=== PATIENT | female | born 1945 | race Asian ===

== ENCOUNTER 2017-06-08 08:16 | Outpatient (CLI) | payer OTHER, BC ==
[~2017-06-08 08:16] MED LIST: ACID REDUCER150 MG OR; ALBU90AE13 INH; AMLO2.5T PO; BUSPIRONE10 MG PO; CARAFATE1 GM PO; CETI10TA PO; CETIRIZINE10 MG PO; CLARITHROMYC500 M1 PO; CLONIDINE0.1 MG PO; CLONIDINE0.2 MG PO; CLOP75TA2 PO; CYCL10TA35 PO; DEMADEX20 MG PO; DIPH50CA30 PO; DOCU100C10 PO; ESTR1TAB13 PO; FETZIMA40 MG PO; FLUD0.1T PO; FLUT0.05 NAS; LABETALOL300 MG OR; LAXA BASIC PO; LAXATIVE1 TAB PO; LEVE500T5 PO; LEVO0.0218 PO; LIDOPATCH TOP; LISI20TA31 OR; LORADAMED10 MG OR; LORAZEPAM0.5 MG OR; MELATONIN300 MCG PO; METO50TA27 PO; NEURONTIN 100M100 MG PO; NEXIUM40 M1 PO; OMEP40CA PO; ONDA4TAB3 PO; RANI150T78 PO; RANO1000T PO; TORSEMIDE20 MG PO; TRAM50TA PO; UNITH DIRECT50 MCG PO; VITAMIN D35000 UNI3 PO; VIVELLE-DOT0.0375 MG TD; [UNRECOGNIZED DRUG - CODE] PO
== END 2017-06-08 09:20 | disposition home or self-care (01) ==
LOC: RAD 08:16
DX: M54.17 Radiculopathy, lumbosacral region (principal)

== ENCOUNTER 2017-06-30 08:54 | Outpatient (CLI) | payer OTHER, BC | END 2017-06-30 10:30 | disposition home or self-care (01) | LOC: MRI 08:54 | DX: M54.17 Radiculopathy, lumbosacral region (principal); M81.0 Age-related osteoporosis without current pathological fracture ==

== ENCOUNTER 2017-08-21 12:50 | Emergency (ER) | payer OTHER, BC ==
[~2017-08-21] VITALS: Ht 172.7 cm; Wt 73.9 kg
[2017-08-21 13:04] VITALS: BP 184/94; TEMP 98
== END 2017-08-21 14:30 | disposition home or self-care (01) ==
LOC: EDBD 12:50 → ED 12:50
DX: M54.5 Low back pain (principal)

== ENCOUNTER 2017-09-18 12:45 | Outpatient (CLI) | payer OTHER, BC | END 2017-09-18 19:32 | disposition home or self-care (01) | LOC: EDBD 12:45 → RAD 12:45 | DX: M79.605 Pain in left leg (principal) ==

== ENCOUNTER 2017-09-25 19:07 | Emergency (ER) | payer OTHER, BC ==
[~2017-09-25] VITALS: Ht 175.3 cm; Wt 69.4 kg
[2017-09-25 19:10] VITALS: TEMP 97.8
[2017-09-25 19:42] LABS: PLATELET COUNT 249 K/uL (152-353)
[2017-09-25] MEDS ORDERED: HYDR5TAB9 PO (19:47)
[2017-09-25] MEDS ORDERED: BACLOFEN10 MG OR (19:47)
[2017-09-25] MEDS ORDERED: DIOVAN40 MG PO (19:48)
[2017-09-25 19:56] LABS: POTASSIUM 3.7 mmol/L (3.6-5.2)
[2017-09-25 21:24] VITALS: BP 98/57
== END 2017-09-25 21:24 | disposition home or self-care (01) ==
LOC: EDBD 19:07 → ED 19:07
DX: J06.9 Acute upper respiratory infection, unspecified (principal)
CPT/HCPCS: 36415; 51702; 80053; 80307; 80320; 81000; 85027; 99283; G0479

== ENCOUNTER 2017-10-04 10:30 | Outpatient (CLI) | payer OTHER, BC ==
[~2017-10-04 10:30] MED LIST changes: +BACLOFEN10 MG OR; +DIOVAN40 MG PO; +HYDR5TAB9 PO
== END 2017-10-04 18:58 | disposition home or self-care (01) ==
LOC: EDBD 10:30 → RAD 10:30
DX: M25.551 Pain in right hip (principal); W01.0XXA Fall on same level from slipping, tripping and stumbling without subsequent striking against object, initial encounter

== ENCOUNTER 2017-10-06 12:11 | Observation (INO) | payer OTHER, BC ==
[~2017-10-06] VITALS: Ht 175.3 cm; Wt 71.0 kg
--- NOTE | 2017-10-06 12:30 | NUR ---
Pt. ADMITTED TO ROOM 1109 FOR SERVICES . C/O DIZZINESS X1 WEEK WITH HYPOTENSION.
[2017-10-06 14:39] LABS: PLATELET COUNT 283 K/uL (152-353)
[2017-10-06 14:40] LABS: POTASSIUM 3.8 mmol/L (3.6-5.2)
[2017-10-06 17:35] VITALS: BP 96/58; TEMP 97.8; Ht 175.3 cm; Wt 71.0 kg
[2017-10-06 20:00] VITALS: BP 159/70; TEMP 98.5
[2017-10-06] MEDS ORDERED: CLONIDINE0.3 MG PO (22:50)
[2017-10-06] MEDS ORDERED: NEURONTIN 100M100 MG OR (22:55)
[2017-10-06] MEDS ORDERED: DIOVAN40 MG PO (22:58)
[2017-10-07] VITALS: BP 113/56; TEMP 99.6
[2017-10-07 04:00] VITALS: BP 153/77; TEMP 99
[2017-10-07 08:00] VITALS: BP 146/97; TEMP 99.3
[2017-10-07 12:00] VITALS: BP 177/93; TEMP 98.7
[2017-10-07 16:00] VITALS: BP 168/63; TEMP 99
[2017-10-07 20:00] VITALS: BP 155/79; TEMP 99.6
[2017-10-08] VITALS: BP 165/67; TEMP 99.1
[2017-10-08 04:00] VITALS: BP 186/85; TEMP 99.4
[2017-10-08 05:15] LABS: PLATELET COUNT 267 K/uL (152-353)
[2017-10-08 05:44] LABS: POTASSIUM 3.2 mmol/L (3.6-5.2)
[2017-10-08 08:00] VITALS: BP 184/94; TEMP 99.8
[2017-10-08 12:00] VITALS: BP 169/79; TEMP 99
--- NOTE | 2017-10-08 18:00 | NUR ---
IV D/C'd. DISCHARGE INSTRUCTION SIGNED AND GIVEN. Pt. EXIT OUT OF FRONT ENTRANCE VIA W/C.
== END 2017-10-08 18:06 | disposition home or self-care (01) ==
LOC: MED/SURG 12:11 → EDBD 10-08 18:06 → MED/SURG 10-08 18:06
PROVIDERS: ADMIT Family Medicine
DX: R42 Dizziness and giddiness (principal); I65.9 Occlusion and stenosis of unspecified precerebral artery; M62.81 Muscle weakness (generalized)
CPT/HCPCS: 36415; 80053; 81000; 82550; 82553; 83735; 83880; 84100; 84484; 85027; 85651; 87040; 93005; 96360; 96361; 96365; 96366; 96375; 99220; G0378; G0379

== ENCOUNTER 2017-10-23 14:59 | Outpatient (CLI) | payer OTHER, BC ==
[~2017-10-23 14:59] MED LIST changes: +CLONIDINE0.3 MG PO; +NEURONTIN 100M100 MG OR
== END 2017-10-23 15:02 | disposition short-term general hospital (02) ==
LOC: AMB 14:59
DX: R41.82 Altered mental status, unspecified (principal); R53.83 Other fatigue
CPT/HCPCS: A0425; A0427

== ENCOUNTER 2017-10-23 15:07 | Emergency (ER) | payer OTHER, BC ==
[~2017-10-23] VITALS: Ht 175.3 cm; Wt 73.9 kg
[2017-10-23 16:29] LABS: PLATELET COUNT 208 K/uL (152-353)
[2017-10-23 16:43] LABS: POTASSIUM 3.6 mmol/L (3.6-5.2); SODIUM 138 mmol/L (136-145)
[2017-10-23 16:57] LABS: PARTIAL THROMBOPLASTIN TIME 32.6 SECONDS (24.5-33.6)
[2017-10-24 01:06] VITALS: BP 132/71; TEMP 98.6
== END 2017-10-24 01:06 | disposition short-term general hospital (02) ==
LOC: ED 15:07 → EDBD 15:07 → ED 10-24 01:06
PROVIDERS: Family Medicine
DX: J70.5 Respiratory conditions due to smoke inhalation (principal); T59.811A Toxic effect of smoke, accidental (unintentional), initial encounter; R41.82 Altered mental status, unspecified; R53.1 Weakness; R00.1 Bradycardia, unspecified; I10 Essential (primary) hypertension; E78.4 Other hyperlipidemia; R55 Syncope and collapse; Y92.098 Other place in other non-institutional residence as the place of occurrence of the external cause
CPT/HCPCS: 36415; 36600; 80053; 82550; 82553; 82805; 83605; 84484; 85027; 85610; 85730; 93005; 94664; 96374; 96375; 99284; J2310; J3490

== ENCOUNTER 2017-11-22 11:27 | Outpatient (CLI) | payer OTHER, BC ==
[2017-11-22 11:44] LABS: PLATELET COUNT 288 K/uL (152-353)
[2017-11-22 12:11] LABS: POTASSIUM 3.1 mmol/L (3.6-5.2)
== END 2017-11-22 19:04 | disposition home or self-care (01) ==
LOC: LABW 11:27
PROVIDERS: Internal Medicine Cardiovascular Disease
DX: I25.89 Other forms of chronic ischemic heart disease (principal); D64.89 Other specified anemias
CPT/HCPCS: 36415; 80053; 85027

== ENCOUNTER 2017-12-24 10:24 | Emergency (ER) | payer OTHER, BC ==
[~2017-12-24] VITALS: Ht 175.3 cm; Wt 72.6 kg
[2017-12-24 10:51] VITALS: TEMP 98
[2017-12-24] MEDS ORDERED: DONE5TAB PO (10:55)
[2017-12-24] MEDS ORDERED: TRAM50TA PO (10:55)
[2017-12-24 12:18] VITALS: BP 128/87
== END 2017-12-24 12:18 | disposition home or self-care (01) ==
LOC: ED 10:24
DX: M79.652 Pain in left thigh (principal); S76.812A Strain of other specified muscles, fascia and tendons at thigh level, left thigh, initial encounter; X50.9XXA Other and unspecified overexertion or strenuous movements or postures, initial encounter; Y92.098 Other place in other non-institutional residence as the place of occurrence of the external cause
CPT/HCPCS: 96372; 99283; J1885

== ENCOUNTER 2017-12-26 08:50 | Outpatient (CLI) | payer OTHER, BC ==
[~2017-12-26 08:50] MED LIST changes: +DONE5TAB PO
== END 2017-12-26 22:59 | disposition home or self-care (01) ==
LOC: MRI 08:50
DX: M48.02 Spinal stenosis, cervical region (principal); M47.896 Other spondylosis, lumbar region

== ENCOUNTER 2018-04-12 08:22 | Outpatient (CLI) | payer OTHER, BC ==
[~2018-04-12 08:22] MED LIST changes: -NEURONTIN 100M100 MG OR
== END 2018-04-12 08:26 | disposition short-term general hospital (02) ==
LOC: AMB 08:22
DX: M54.2 Cervicalgia (principal); W05.0XXA Fall from non-moving wheelchair, initial encounter; Y92.098 Other place in other non-institutional residence as the place of occurrence of the external cause
CPT/HCPCS: A0425; A0427

== ENCOUNTER 2018-04-12 08:29 | Emergency (ER) | payer OTHER, BC ==
[~2018-04-12] VITALS: Ht 172.7 cm; Wt 73.0 kg
[~2018-04-12 08:29] MED LIST changes: +NEURONTIN 100M100 MG OR
[2018-04-12 09:57] LABS: POTASSIUM 5.1 mmol/L (3.6-5.2)
[2018-04-12 10:11] LABS: PLATELET COUNT 331 K/uL (152-353)
[2018-04-12 11:20] VITALS: BP 146/83; TEMP 97.7
== END 2018-04-12 11:20 | disposition home or self-care (01) ==
LOC: ED 08:29
PROVIDERS: Family Medicine
DX: E86.0 Dehydration (principal); W07.XXXA Fall from chair, initial encounter; Y92.89 Other specified places as the place of occurrence of the external cause
CPT/HCPCS: 80053; 82550; 82553; 85027; 96372; 99283; J1885

== ENCOUNTER 2018-04-14 10:45 | Inpatient (IN) | payer OTHER, BC ==
[~2018-04-14] VITALS: Ht 172.7 cm; Wt 71.7 kg
[~2018-04-14 10:45] MED LIST changes: -NEURONTIN 100M100 MG OR
[2018-04-14 12:45] LABS: POTASSIUM 3.3 mmol/L (3.6-5.2)
[2018-04-14 12:46] LABS: PLATELET COUNT 329 K/uL (152-353)
[2018-04-14] MEDS ORDERED: CETIRIZINE10 MG PO (14:41)
[2018-04-14] MEDS ORDERED: DIAZ5TAB20 PO (14:42)
[2018-04-14] MEDS ORDERED: MULTI COMPLETE PO (14:42)
[2018-04-14] MEDS ORDERED: OXYC5TAB53 PO (14:43)
[2018-04-14] MEDS ORDERED: METOPROLOL25 M1 PO (14:44)
[2018-04-14] MEDS ORDERED: CVS OMEPRAZOLE20 MG PO (14:45)
[2018-04-14] MEDS ORDERED: DIPHENHYDRAM50 M2 PO (14:45)
[2018-04-14 16:00] VITALS: BP 120/61; TEMP 97.6
[2018-04-14 17:39] VITALS: BP 137/86; TEMP 97.8; Ht 172.7 cm; Wt 71.7 kg
[2018-04-14 20:00] VITALS: BP 143/82; TEMP 99.7
[2018-04-14 23:52] VITALS: BP 142/89; TEMP 100
[2018-04-15 03:53] VITALS: BP 134/89; TEMP 99.5
[2018-04-15 08:17] VITALS: BP 177/98; TEMP 98.6
[2018-04-15 11:43] VITALS: BP 145/86; TEMP 99
[2018-04-15 16:00] VITALS: BP 137/86; TEMP 98.7
[2018-04-15 19:56] VITALS: BP 143/90; TEMP 99.4
[2018-04-16] VITALS: BP 148/78; TEMP 99.5
[2018-04-16 03:56] VITALS: BP 155/89; TEMP 99.5
[2018-04-16 05:43] LABS: PLATELET COUNT 287 K/uL (152-353)
[2018-04-16 06:04] LABS: POTASSIUM 3.4 mmol/L (3.6-5.2)
[2018-04-16 08:00] VITALS: BP 177/98; TEMP 98.9
[2018-04-16 12:00] VITALS: BP 146/91; TEMP 98.8
[2018-04-16 16:00] VITALS: BP 146/77; TEMP 98.9
[2018-04-16 19:17] VITALS: BP 140/87; TEMP 99.1
[2018-04-17 00:25] VITALS: BP 128/75; TEMP 98.3
[2018-04-17 04:22] VITALS: BP 168/98; TEMP 98.6
[2018-04-17 05:47] LABS: PLATELET COUNT 264 K/uL (152-353)
[2018-04-17 06:13] LABS: POTASSIUM 3.3 mmol/L (3.6-5.2)
[2018-04-17 08:00] VITALS: BP 163/81; TEMP 99.2
[2018-04-17 12:00] VITALS: BP 151/70; TEMP 99.4
[2018-04-17 16:00] VITALS: BP 169/79; TEMP 98.5
[2018-04-17 20:00] VITALS: BP 140/74; TEMP 99.3
[2018-04-18] VITALS: BP 138/76; TEMP 100.5
[2018-04-18 04:00] VITALS: BP 172/85; TEMP 99.5
[2018-04-18 05:40] LABS: PLATELET COUNT 228 K/uL (152-353)
[2018-04-18 05:58] LABS: POTASSIUM 3.3 mmol/L (3.6-5.2)
[2018-04-18 08:00] VITALS: BP 151/82; TEMP 99.5
[2018-04-18 12:00] VITALS: BP 159/81; TEMP 99.5
== END 2018-04-18 16:19 | disposition swing bed (61) | DRG 641 ==
LOC: MED/SURG 10:45
PROVIDERS: ADMIT Family Medicine
DX: E86.0 Dehydration (principal); G89.18 Other acute postprocedural pain; R42 Dizziness and giddiness; M54.2 Cervicalgia; M62.81 Muscle weakness (generalized); G20 Parkinson's disease; R53.81 Other malaise; M62.838 Other muscle spasm
CPT/HCPCS: 36415; 36591; 80053; 81000; 82550; 82553; 83735; 83874; 83880; 84100; 84443; 84484; 85027; 85610; 87040; 87077; 87185; 87205; 93005; 96360; 96361; 96366; 96374; 96375; J2270; J3475

== ENCOUNTER 2018-04-18 16:20 | Inpatient (IN) | payer OTHER, BC ==
[~2018-04-18] VITALS: Ht 172.7 cm; Wt 70.3 kg
[~2018-04-18 16:20] MED LIST changes: +CVS OMEPRAZOLE20 MG PO; +DIAZ5TAB20 PO; +DIPHENHYDRAM50 M2 PO; +METOPROLOL25 M1 PO; +MULTI COMPLETE PO; +OXYC5TAB53 PO
[2018-04-18 17:36] VITALS: BP 147/95; TEMP 99.3; Ht 172.7 cm; Wt 70.3 kg
[2018-04-18 20:00] VITALS: BP 179/92; TEMP 99.6
[2018-04-19 08:30] VITALS: BP 110/69; TEMP 98.3
[2018-04-19 20:00] VITALS: BP 102/60; TEMP 98.9
[2018-04-20 08:47] VITALS: BP 124/72; TEMP 98.6
[2018-04-20 20:00] VITALS: BP 141/72; TEMP 99.4
[2018-04-21 09:22] VITALS: BP 117/69; TEMP 98.6
[2018-04-21 20:00] VITALS: BP 108/60; TEMP 99.9
[2018-04-22 19:56] VITALS: BP 118/72; TEMP 99.3
[2018-04-23 20:00] VITALS: BP 108/53; TEMP 100
[2018-04-24 08:15] VITALS: BP 127/51; TEMP 99
[2018-04-24 20:00] VITALS: BP 125/76; TEMP 98.9
[2018-04-25 06:10] LABS: POTASSIUM 3.9 mmol/L (3.6-5.2)
[2018-04-25 06:11] LABS: PLATELET COUNT 276 K/uL (152-353)
[2018-04-25 09:22] VITALS: BP 89/50; TEMP 97.8
[2018-04-25 20:19] VITALS: BP 120/71; TEMP 98.6
[2018-04-26 09:10] VITALS: BP 114/68; TEMP 98.3
== END 2018-04-26 09:30 | disposition home or self-care (01) | DRG 556 ==
LOC: MED/SURG 16:20
PROVIDERS: ADMIT Family Medicine
DX: M62.81 Muscle weakness (generalized) (principal); I10 Essential (primary) hypertension; M54.2 Cervicalgia; Z98.1 Arthrodesis status; H81.49 Vertigo of central origin, unspecified ear; R26.81 Unsteadiness on feet; K21.0 Gastro-esophageal reflux disease with esophagitis; Z73.6 Limitation of activities due to disability; Z91.81 History of falling; R26.89 Other abnormalities of gait and mobility; E86.0 Dehydration
CPT/HCPCS: 80053; 83735; 84100; 85027

== ENCOUNTER 2018-12-05 09:03 | Outpatient (CLI) | payer OTHER, BC | END 2018-12-05 22:07 | disposition home or self-care (01) | LOC: MAMMO 09:03 | DX: Z12.31 Encounter for screening mammogram for malignant neoplasm of breast (principal) ==

== ENCOUNTER 2018-12-18 15:34 | Outpatient (CLI) | payer OTHER, BC | END 2018-12-18 21:18 | disposition home or self-care (01) | LOC: RAD 15:34 | DX: M54.12 Radiculopathy, cervical region (principal) ==

== ENCOUNTER 2019-08-05 08:04 | Outpatient (CLI) | payer OTHER, BC | END 2019-08-05 22:36 | disposition home or self-care (01) | LOC: RAD 08:04 | DX: M25.552 Pain in left hip (principal) ==

== ENCOUNTER 2019-09-26 22:49 | Emergency (ER) | payer OTHER, BC ==
[~2019-09-26] VITALS: Ht 175.3 cm; Wt 70.3 kg
[2019-09-27 00:22] VITALS: BP 129/71; TEMP 97.5
== END 2019-09-27 00:22 | disposition home or self-care (01) ==
LOC: ED 22:49
DX: T78.49XA Other allergy, initial encounter (principal)
CPT/HCPCS: 99282

== ENCOUNTER 2019-11-15 09:32 | Outpatient (CLI) | payer OTHER, BC | END 2019-11-15 19:40 | disposition home or self-care (01) | LOC: RAD 09:32 | DX: M89.8X8 Other specified disorders of bone, other site (principal); N95.8 Other specified menopausal and perimenopausal disorders ==

== ENCOUNTER 2019-12-10 09:16 | Outpatient (CLI) | payer OTHER, BC | END 2019-12-10 19:42 | disposition home or self-care (01) | LOC: MAMMO 09:16 | DX: Z12.31 Encounter for screening mammogram for malignant neoplasm of breast (principal) ==

== ENCOUNTER 2020-01-29 09:15 | Outpatient (CLI) | payer OTHER, BC | END 2020-01-29 19:29 | disposition home or self-care (01) | LOC: RAD 09:15 | DX: R10.13 Epigastric pain (principal) | CPT/HCPCS: 36415; 82565; 84520; Q9963 ==

== ENCOUNTER 2020-04-30 11:12 | Outpatient (CLI) | payer OTHER, BC | END 2020-04-30 22:24 | disposition home or self-care (01) | LOC: RAD 11:12 | DX: M06.4 Inflammatory polyarthropathy (principal); M79.641 Pain in right hand; M79.642 Pain in left hand ==

== ENCOUNTER 2020-07-17 14:22 | Emergency (ER) | payer OTHER, BC ==
[~2020-07-17] VITALS: Ht 175.3 cm; Wt 71.7 kg
[2020-07-17 14:35] VITALS: BP 122/64; TEMP 99.1
[2020-07-17 20:03] LABS: PLATELET COUNT 167 K/uL (152-353)
[2020-07-17 20:13] LABS: POTASSIUM 3.8 mmol/L (3.6-5.2)
[2020-07-17 20:29] LABS: PARTIAL THROMBOPLASTIN TIME 31.7 SECONDS (24.5-33.6)
== END 2020-07-17 21:33 | disposition home or self-care (01) ==
LOC: ED 14:22
PROVIDERS: Family Medicine
DX: M79.605 Pain in left leg (principal); M79.604 Pain in right leg; Z79.01 Long term (current) use of anticoagulants
CPT/HCPCS: 36415; 80053; 81000; 85027; 85379; 85610; 85730; 99283

== ENCOUNTER 2020-08-07 12:59 | Outpatient (CLI) | payer OTHER, BC | END 2020-08-07 23:59 | disposition home or self-care (01) | LOC: US 12:59 | DX: R25.2 Cramp and spasm (principal); I73.9 Peripheral vascular disease, unspecified; R22.43 Localized swelling, mass and lump, lower limb, bilateral; M06.4 Inflammatory polyarthropathy; M79.641 Pain in right hand; M79.642 Pain in left hand ==

== ENCOUNTER 2020-08-28 08:23 | Outpatient (CLI) | payer OTHER, BC | END 2020-08-29 03:32 | disposition home or self-care (01) | LOC: US 08:23 | DX: I89.0 Lymphedema, not elsewhere classified (principal) ==

== ENCOUNTER 2020-11-05 12:51 | Outpatient (CLI) | payer OTHER, BC ==
[2020-11-05 13:12] LABS: POTASSIUM 3.6 mmol/L (3.6-5.2)
== END 2020-11-05 20:19 | disposition home or self-care (01) ==
LOC: LABW 12:51
PROVIDERS: ATTEND Nurse Practitioner Gerontology
DX: E87.6 Hypokalemia (principal)
CPT/HCPCS: 36415; 80048

== ENCOUNTER 2020-12-31 14:06 | Outpatient (CLI) | payer OTHER, BC | END 2020-12-31 20:11 | disposition home or self-care (01) | LOC: MAMMO 14:06 | PROVIDERS: ATTEND Family Medicine | DX: Z12.31 Encounter for screening mammogram for malignant neoplasm of breast (principal) ==

== ENCOUNTER 2021-02-04 09:17 | Outpatient (CLI) | payer OTHER, BC | END 2021-02-04 21:44 | disposition home or self-care (01) | LOC: RAD 09:17 | PROVIDERS: ATTEND Nurse Practitioner Gerontology | DX: M54.5 Low back pain (principal); M70.61 Trochanteric bursitis, right hip ==

== ENCOUNTER 2021-02-21 10:55 | Emergency (ER) | payer OTHER, BC ==
[~2021-02-21] VITALS: Ht 175.3 cm; Wt 76.7 kg
[2021-02-21 11:14] VITALS: TEMP 97.8
[2021-02-21 11:53] LABS: PLATELET COUNT 186 K/uL (152-353)
[2021-02-21 12:05] LABS: POTASSIUM 3.6 mmol/L (3.6-5.2)
[2021-02-21 13:06] VITALS: BP 164/72
== END 2021-02-21 13:06 | disposition home or self-care (01) ==
LOC: ED 10:55
PROVIDERS: Hospitalist
DX: R11.2 Nausea with vomiting, unspecified (principal); A08.39 Other viral enteritis
CPT/HCPCS: 36415; 80053; 81000; 83690; 85027; 96360; 96375; 99284; J2405

== ENCOUNTER 2021-05-04 12:40 | Outpatient (CLI) | payer OTHER, BC | END 2021-05-04 22:44 | disposition home or self-care (01) | LOC: RAD 12:40 | PROVIDERS: ATTEND Nurse Practitioner Gerontology | DX: M06.4 Inflammatory polyarthropathy (principal); M54.5 Low back pain ==

== ENCOUNTER 2021-09-01 16:01 | Emergency (ER) | payer OTHER, BC ==
[~2021-09-01] VITALS: Ht 175.3 cm; Wt 71.7 kg
[2021-09-01 16:01] VITALS: TEMP 97.9
[2021-09-01 16:21] LABS: PLATELET COUNT 166 K/uL (152-353)
[2021-09-01 16:32] LABS: POTASSIUM 3.9 mmol/L (3.6-5.2); SODIUM 139 mmol/L (136-145)
[2021-09-01 17:50] VITALS: BP 145/78
== END 2021-09-01 17:50 | disposition home or self-care (01) ==
LOC: ED 16:01
PROVIDERS: Hospitalist
DX: E86.0 Dehydration (principal); R00.1 Bradycardia, unspecified; Z79.899 Other long term (current) drug therapy; Z51.81 Encounter for therapeutic drug level monitoring
CPT/HCPCS: 36415; 80053; 82550; 83880; 84484; 85027; 85610; 85730; 93005; 96360; 99284

== ENCOUNTER 2021-09-15 16:26 | Outpatient (CLI) | payer OTHER, BC | END 2021-09-15 21:54 | disposition home or self-care (01) | LOC: CT 16:26 | PROVIDERS: ATTEND Nurse Practitioner Primary Care | DX: M25.511 Pain in right shoulder (principal); R51.9 Headache, unspecified; W19.XXXA Unspecified fall, initial encounter ==

== ENCOUNTER 2021-11-03 17:02 | Outpatient (CLI) | payer OTHER, BC ==
[2021-11-03 18:00] LABS: POTASSIUM 4.2 mmol/L (3.6-5.2)
== END 2021-11-03 20:32 | disposition home or self-care (01) ==
LOC: CT 17:02
PROVIDERS: ATTEND Nurse Practitioner Family
DX: S00.83XA Contusion of other part of head, initial encounter (principal); R42 Dizziness and giddiness; Y92.9 Unspecified place or not applicable
CPT/HCPCS: 36415; 80053; 82550; 82553; 83735; 84100; 84484

== ENCOUNTER 2021-12-06 07:56 | Outpatient (CLI) | payer OTHER, BC | END 2021-12-06 19:30 | disposition home or self-care (01) | LOC: RAD 07:56 | PROVIDERS: ATTEND Nurse Practitioner Gerontology | DX: N95.9 Unspecified menopausal and perimenopausal disorder (principal); Z13.820 Encounter for screening for osteoporosis ==

== ENCOUNTER 2022-02-16 10:52 | Outpatient (CLI) | payer OTHER, BC | END 2022-02-16 18:53 | disposition home or self-care (01) | LOC: MAMMO 10:52 | PROVIDERS: ATTEND Nurse Practitioner Primary Care | DX: Z12.31 Encounter for screening mammogram for malignant neoplasm of breast (principal) ==

== ENCOUNTER 2022-02-17 15:39 | Emergency (ER) | payer OTHER, BC ==
[~2022-02-17] VITALS: Ht 172.7 cm; Wt 71.7 kg
[2022-02-17 16:04] LABS: PLATELET COUNT 180 K/uL (152-353)
[2022-02-17 16:08] LABS: POTASSIUM 3.6 mmol/L (3.6-5.2)
[2022-02-17 16:22] LABS: PARTIAL THROMBOPLASTIN TIME 33.7 SECONDS (24.5-33.6)
[2022-02-17 19:30] VITALS: BP 96/53; TEMP 97.6
== END 2022-02-17 19:30 | disposition short-term general hospital (02) ==
LOC: ED 15:39
PROVIDERS: Hospitalist
DX: I95.89 Other hypotension (principal); R00.1 Bradycardia, unspecified; R19.7 Diarrhea, unspecified; E86.0 Dehydration; R07.89 Other chest pain; Z11.52 Encounter for screening for COVID-19
CPT/HCPCS: 36415; 80053; 82550; 83880; 84484; 85027; 85610; 85730; 87635; 93005; 96360; 96361; 96375; 96376; 99284; J2270; J2405; U0003

== ENCOUNTER 2022-02-24 10:44 | Outpatient (CLI) | payer OTHER, BC | END 2022-02-24 20:08 | disposition home or self-care (01) | LOC: LAB 10:44 | PROVIDERS: ATTEND Nurse Practitioner Primary Care | DX: R19.7 Diarrhea, unspecified (principal) | CPT/HCPCS: 83630; 87015; 87045; 87324; 87328; 87329; 87449; 87899 ==

== ENCOUNTER 2022-03-11 09:15 | Outpatient (CLI) | payer OTHER, BC ==
[2022-03-11 10:08] LABS: POTASSIUM 3.7 mmol/L (3.6-5.2)
== END 2022-03-11 20:57 | disposition home or self-care (01) ==
LOC: LABW 09:15
PROVIDERS: ATTEND Physician Assistant
DX: Z79.899 Other long term (current) drug therapy (principal); R60.0 Localized edema; R06.09 Other forms of dyspnea
CPT/HCPCS: 36415; 80048; 83880

== ENCOUNTER 2022-05-17 17:16 | Outpatient (CLI) | payer OTHER, BC ==
[2022-05-17 17:41] LABS: PLATELET COUNT 149 K/uL (152-353)
[2022-05-17 17:51] LABS: POTASSIUM 4.3 mmol/L (3.6-5.2)
== END 2022-05-17 20:16 | disposition home or self-care (01) ==
LOC: LABW 17:16
PROVIDERS: ATTEND Nurse Practitioner Family
DX: R60.0 Localized edema (principal)
CPT/HCPCS: 36415; 80053; 83735; 83880; 85027

== ENCOUNTER 2022-07-11 10:41 | Outpatient (CLI) | payer OTHER ==
[2022-07-11 11:10] LABS: PLATELET COUNT 172 K/uL (152-353)
[2022-07-11 11:18] LABS: POTASSIUM 3.6 mmol/L (3.6-5.2)
== END 2022-07-11 19:33 | disposition home or self-care (01) ==
LOC: LABW 10:41
PROVIDERS: ATTEND Nurse Practitioner Family
DX: U07.1 COVID-19 (principal)
CPT/HCPCS: 80053; 85027

== ENCOUNTER 2022-08-10 12:33 | Outpatient (CLI) | payer OTHER | END 2022-08-10 18:53 | disposition home or self-care (01) | LOC: RESP 12:33 | PROVIDERS: ATTEND Physician Assistant | DX: Z01.818 Encounter for other preprocedural examination (principal); R01.1 Cardiac murmur, unspecified ==

== ENCOUNTER 2022-08-17 07:53 | Outpatient (CLI) | payer OTHER ==
[~2022-08-17] VITALS: Ht 167.6 cm; Wt 73.0 kg
== END 2022-08-17 19:17 | disposition home or self-care (01) ==
LOC: NM 07:53
PROVIDERS: ATTEND Physician Assistant
DX: Z01.818 Encounter for other preprocedural examination (principal); R01.1 Cardiac murmur, unspecified; Z79.899 Other long term (current) drug therapy
CPT/HCPCS: A9500; J2785

== ENCOUNTER 2022-11-19 13:33 | Emergency (ER) | payer OTHER ==
[~2022-11-19] VITALS: Ht 167.6 cm; Wt 73.0 kg
[2022-11-19 13:33] VITALS: TEMP 98.7
[2022-11-19 15:39] VITALS: BP 177/61
== END 2022-11-19 15:40 | disposition home or self-care (01) ==
LOC: ED 13:33
DX: S13.4XXA Sprain of ligaments of cervical spine, initial encounter (principal); S83.8X2A Sprain of other specified parts of left knee, initial encounter; S70.01XA Contusion of right hip, initial encounter; V53.6XXA Passenger in pick-up truck or van injured in collision with car, pick-up truck or van in traffic accident, initial encounter; Y92.488 Other paved roadways as the place of occurrence of the external cause
CPT/HCPCS: 99283

== ENCOUNTER 2023-01-10 09:34 | Outpatient (CLI) | payer OTHER | END 2023-01-10 19:36 | disposition home or self-care (01) | LOC: MRI 09:34 | PROVIDERS: ATTEND Nurse Practitioner Primary Care | DX: M54.16 Radiculopathy, lumbar region (principal) ==

== ENCOUNTER 2023-01-17 17:48 | Emergency (ER) | payer OTHER ==
[~2023-01-17] VITALS: Ht 167.6 cm; Wt 72.6 kg
[2023-01-17 17:52] VITALS: TEMP 98.8
[2023-01-17 18:49] VITALS: BP 161/91
== END 2023-01-17 19:05 | disposition home or self-care (01) ==
LOC: ED 17:48
DX: S70.351A Superficial foreign body, right thigh, initial encounter (principal); W27.3XXA Contact with needle (sewing), initial encounter; Y92.89 Other specified places as the place of occurrence of the external cause
CPT/HCPCS: 99282

== ENCOUNTER → 2023-01-25 | Day surgery (SDC) | payer OTHER | LOC: OR 01-19 11:00 | PROVIDERS: ATTEND Family Medicine | DX: Z53.9 Procedure and treatment not carried out, unspecified reason (principal) | CPT/HCPCS: J7120 ==

== ENCOUNTER 2023-05-10 12:06 | Outpatient (CLI) | payer OTHER ==
[2023-05-10 12:18] LABS: PLATELET COUNT 206 K/uL (152-353)
[2023-05-10 12:31] LABS: POTASSIUM 3.4 mmol/L (3.6-5.2)
== END 2023-05-10 22:12 | disposition home or self-care (01) ==
LOC: LABW 12:06
PROVIDERS: ATTEND Nurse Practitioner Family
DX: R14.0 Abdominal distension (gaseous) (principal); Z79.899 Other long term (current) drug therapy
CPT/HCPCS: 36415; 80053; 83735; 85027

== ENCOUNTER 2023-06-08 10:28 | Outpatient (CLI) | payer OTHER ==
[2023-06-08 10:46] LABS: PLATELET COUNT 218 K/uL (152-353)
[2023-06-08 10:48] LABS: POTASSIUM 3.9 mmol/L (3.6-5.2)
== END 2023-06-08 19:21 | disposition home or self-care (01) ==
LOC: LABW 10:28
PROVIDERS: ATTEND Nurse Practitioner Family
DX: R25.2 Cramp and spasm (principal)
CPT/HCPCS: 36415; 80048; 83735; 85027